=== PATIENT | male | born 2000 | race Caucasian/White ===

== ENCOUNTER 2024-01-24 17:09 | Emergency (ER) | payer OTHER, SELFPAY ==
[2024-01-24] VITALS (11 sets, daily range): BP systolic 128–139; BP diastolic 77–85; PULSE 70–85; RESP 18; TEMP 36.8; O2SAT 96–99; BMI 21.2
--- NOTE | 2024-01-24 17:19 | ED.GENADULT ---
HPI - General Adult General Chief complaint: Dizziness/Vertigo Stated complaint: dizziness/tingling hands and feet Time Seen by Provider: 01/24/24 17:18 History of Present Illness HPI narrative: 23-year-old male presenting to the ER today with his mother for evaluation of symptoms including dizziness, tingling, thirst, urinary problems. He is 23. He was with his parents. 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 He has no previous significant medical history. Mother notes that he has a long-term tendency to forward feeling somewhat anxious. He is not getting any therapy for anxiety or mental health. He does not use drugs or alcohol. He has had symptoms ongoing for the past couple of weeks. History is a bit vague in we can exactly determine precisely when her symptoms occurred. It was on Tuesday evening either 1, 2, or 3 weeks ago. He had been at work in the afternoon and then as he typically does in the evening he went to his grandparent's house after work. After that he was waiting for his mother to come pick him up and take him home. He recalls being very fatigued after work. He did not do anything particularly unusual that day. That evening he started having some tingling numbness that started 1st in his left hand and forearm and then spread to his left leg and left face. He had numbness but no definite weakness. Perhaps his left arm was slightly weaker than normal. That numbness lasted a couple of days and then got better by sometime mid day on Tuesday that week. Since then he has had intermittent episodes of numbness. Sometimes he gets tingling in his hands and sometimes he gets pins and needles in his feet. Subsequent absence of numbness have been bilateral, not unilateral. He has been more thirsty than normal. Last week he had some discomfort in his left eye and some blurry vision there. He and his mother went to the [facility] last week and had a evaluation but no labs. Since yesterday he has also been feeling a little bit dizzy. He is not really having spinning. He can not really describe the dizziness other than he feels dizzy. He is not having a fever. No cough. Knows a nasal congestion. No sore throat. No chest pain. No abdominal pain. He has had loose stools for the past couple of weeks but not really diarrhea. No bloody or black stools. He has been urinating frequently. He thinks he has probably had about 5 bottles of water since 2 days ago. He otherwise has been eating his normal light diet. He had a banana for breakfast. He had some orange juice and toast after work this afternoon. There has been some stress in his life. His aunt (mother sister) was briefly staying with his family. She was apparently very disrespectful and is having some legal troubles. There was no direct clot on flicked between the patient and his aunt, but it was stressful to have her staying there. Per [facility] notes from 01/16- Over the last 6 days he has noticed intermittent and episodic tingling on the left side of his body including his face, arm, and legs. He will have episodes one-several times daily, and cannot identify any trigger. Sometimes the tingling sensation will last minutes to hours. Sometimes he has symptoms in all 3 body parts at once but most of the time it is just in 1 or 2 of these body parts. This morning he woke up with some mild tingling on the left side but that resolved after couple of minutes and he has not had any symptoms since. He is completely asymptomatic in clinic today. Sometimes the left side of his face feels a little heavier and half my brain feels a little heavier. At the beginning he felt like his left arm was weak but that resolved and now today both of his legs feel a little weak. He had a funny smell in his nose yesterday. Yesterday he also had hazy vision in both eyes lasting most that of the day but that resolved before bed and he has normal vision today. He has never had symptoms like this before. Mom has not noticed any significant change in his demeanor or behavior. He denies any new foods, medications, supplements, or change in his routine. He denies any fever or URI symptoms. No significant headaches or dizziness Related Data Home Medications ?Medication ?Instructions ?Recorded ?Confirmed No Known Home Medications 01/24/24 01/24/24 Allergies Allergy/AdvReac Type Severity Reaction Status Date / Time No Known Drug Allergies Allergy Verified 01/24/24 17:18 Exam Narrative: Exam Narrative: Constitutional: Appears well-developed and well-nourished. Alert. Conversant. Non toxic. HENT: Head: Atraumatic. Nose: Nose normal. Mouth/Throat: Oral mucosa is clear and moist. no trismus. Pharynx normal. Tonsils symmetric. No tonsillar enlargement, erythema, or exudate. Eyes: Conjunctivae normal. EOM normal. No nystagmus. Wearing glasses. Pupils equal, round, and reactive to light. No scleral icterus. Neck: Normal range of motion. Neck supple. No tracheal deviation present. Cardiovascular: Normal rate, regular rhythm. No gallop. No friction rub. No murmur heard. Symmetric radial artery pulses Pulmonary/Chest: Effort normal. No stridor. No respiratory distress. No wheezes. No rales. No rhonchi . No tenderness. Abdominal: Soft. Bowel sounds normal. No distension. No mass. No tenderness. No rebound. No guarding. Musculoskeletal: RUE: Normal range of motion. No tenderness. No deformity LUE: Normal range of motion. No tenderness. No deformity RLE: Normal range of motion. No edema. No tenderness. No deformity LLE: Normal range of motion. No edema. No tenderness. No deformity Lymph: No cervical adenopathy. Neurological: Mental status normal. Attention normal. Alert and oriented x3. GCS 15. Memory normal. Speech fluent. Cognition normal. Cranial Nerves intact II-XII except I did not formally test gag or visual acuity. EOMI. Palate elevates symmetrically and tongue protrudes in the midline. Strength: 5/5 trapezius on the right and left 5/5 deltoid on the right and left 5/5 biceps on the right and left 5/5 triceps on the right and left 5/5 oil tank car cleaner on the right and left 5/5 thumb opposition on the right and left 5/5 finger abduction on the right and left 5/5 hip flexors (L3) on the right and left 5/5 quadriceps (L4) on the right and left 5/5 tibialis anterior on the right and left 5/5 EHL (L5) on the right and left 5/5 gastrocnemius (S1) on the right and left 5/5 hamstring on the right and left Sensation intact to light touch in both upper extremities (C4-T1) Sensation intact to light touch in Both lower extremities (L4-S1). Finger to nose and coordination normal. Gait normal. Skin: Skin is warm and dry. No rash noted. No pallor. Normal capillary refill. Psychiatric: Flat affect. He is a very brief historian. It takes a lot of effort to try to coax out bits of history. He just really does not provide a good history of present illness that is in chronological order. Mother is at his bedside. She is attentive and anxious about him. They seem to interact appropriately and supportively together. No drugs. No marijuana. No alcohol. His aunt, who was staying with his family, may have been smoking some marijuana in her room. He is not sure Const: Vital Signs, click to edit/add: Vital Signs - 24 hr 01/24/24 17:19 01/24/24 18:09 01/24/24 18:15 Temperature 98.2 F Pulse Rate 75 71 Pulse Rate [Pulse Oximeter] 85 Respiratory Rate 18 Blood Pressure Blood Pressure [Ri ght Upper Arm] 137/84 Pulse Oximetry 98 98 98 Oxygen Delivery Me thod Room Air 01/24/24 18:30 01/24/24 18:31 01/24/24 18:32 Temperature Pulse Rate 70 72 72 Pulse Rate [Pulse Oximeter] Respiratory Rate Blood Pressure 128/77 Blood Pressure [Ri ght Upper Arm] Pulse Oximetry 96 97 98 Oxygen Delivery Me thod 01/24/24 18:45 01/24/24 19:00 01/24/24 19:02 Temperature Pulse Rate 73 79 76 Pulse Rate [Pulse Oximeter] Respiratory Rate Blood Pressure 139/85 Blood Pressure [Ri ght Upper Arm] Pulse Oximetry 97 98 98 Oxygen Delivery Me thod Course Vital Signs Vital signs: Initial Vital Signs Temperature 98.2 F 01/24/24 17:19 Temperature Source Temporal Artery Scan 01/24/24 17:19 Pulse Rate 85 01/24/24 17:19 Pulse Rhythm Regular 01/24/24 17:19 Respiratory Rate 18 01/24/24 17:19 Blood Pressure 137/84 01/24/24 17:19 Blood Pressure Mean 101 01/24/24 17:19 Blood Pressure Position Supine 01/24/24 17:19 Pulse Oximetry 98 01/24/24 17:19 Oxygen Delivery Method Room Air 01/24/24 17:19 Vital Signs Temperature 98.2 F 01/24/24 17:19 Pulse Rate 85 01/24/24 17:19 Respiratory Rate 18 01/24/24 17:19 Blood Pressure 137/84 01/24/24 17:19 Pulse Oximetry 98 01/24/24 17:19 Oxygen Delivery Method Room Air 01/24/24 17:19 Temperature 98.2 F 01/24/24 17:19 Pulse Rate 76 01/24/24 19:02 Respiratory Rate 18 01/24/24 17:19 Blood Pressure 139/85 01/24/24 19:02 Pulse Oximetry 98 01/24/24 19:02 Oxygen Delivery Method Room Air 01/24/24 17:19 Medications Administered Medications: Discontinued Medications Generic Name Dose Route Start Last Admin Trade Name Sherley PRN Reason Stop Dose Admin Levetiracetam 750 mg 01/24/24 19:54 01/24/24 20:08 Levetiracetam 500 Mg Tablet PO 01/24/24 19:55 750 mg ONCE ONE Administration Medical Decision Making [facility] Narrative Medical decision making narrative: 23-year-old male presenting to the ER today with his mother with concern for several symptoms. It sounds like he has been having intermittent episodes of paresthesias predominantly affecting his left side of his body. These have been happening off and on for the past couple of weeks. Also for a few days he has had some mild dizziness. No falls or any severe gait instability. Also a little bit of thirst and drinking lot of water over the past few days. Differential is quite broad for the symptoms. Laboratory workup shows normal white count, normal hemoglobin. He is not anemic. Carboxyhemoglobin level is normal. Metabolic profile shows normal electrolytes. Potassium is on the borderline for low at 3.5, but not low enough to cause any symptoms. LFTs are normal. Magnesium level normal. Glucose normal. No evidence for hyperglycemia or new onset diabetes. Urinalysis negative for infection. Urine is positive for ketones which could reflect some dehydration. He denies any drug or alcohol intoxication. No nystagmus or ataxia here in the ER. Alcohol level negative. Also consider possible MOLD BUNCH TRIMMER causes of the symptoms. We did obtain noncontrast head CT scan. This does show a concerning finding of a 2.6 cm lesion within the patient's right lateral ventricle. It is associated with enlargement of the right lateral ventricle but no other hydrocephalus. No midline shift. No evidence for surrounding edema. This lesion is concerning and since it affects the right hemisphere, could correlate to left-sided paresthesias. Discussed with the on-call neurologist through [facility], Dr. Dominguez. She questions whether these intermittent paresthesias might be self-limiting partial seizures. However, she is not comfortable making recommendations about further workup or treatment. She request consultation with Neurosurgery. Discussion with Neurosurgery, Dr. Bloom. He recommends that we initiate Keppra 750 mg b.i.d. and agrees with the plan to get the patient transferred to [place] for neuro monitoring and MRI and further workup Discussed with hospitalist, Dr. Ziegler at [facility] who accepts the patient for admission. Unfortunately there will be up to an 8 hour bed delay before a bed can be assigned [place]. He will have to abort here in the ER [facility] until a bed at [place]. Once a bed is available he will be transferred by EMS for neuro monitoring and route. Discussed with the patient and his mother. They are in agreement and verbalized understanding. Right now we are awaiting bed assignment from [facility] so we can call dispatched to arrange transport. Were anticipating and up to 8 hour delay before he will get a bed. Discussed with my oncoming partner here in the ER. They will monitor the patient's condition until he is transferred. Lab Data Labs: Lab Results 01/24/24 01/24/24 Range/Units 18:00 18:15 WBC 5.98 (4.50-11.00) K/uL RBC 5.77 (4.30-5.90) m/uL Hgb 16.2 (13.5-17.5) gm/dL Hct 48.3 (37.0-53.0) % MCV 84 (80-100) fL MCH 28 (26-34) pg MCHC 34 (32-36) gm/dL RDW Coeff of Roberta 12.0 (11.5-15.5) % Plt Count 192 (140-440) K/uL Neut % (Auto) 67.4 (42.0-72.0) % Lymph % (Auto) 24.9 (20-44) % Carroll % (Auto) 6.7 (0.0-11.0) % Eos % (Auto) 0.7 (0.0-7.0) % Baso % (Auto) 0.3 (0.0-3.0) % Neut # (Auto) 4.03 (1.7-7.0) K/uL Lymph # (Auto) 1.49 (0.90-2.90) K/uL Carroll # (Auto) 0.40 (0.00-0.90) K/UL Eos # (Auto) 0.04 (0.00-0.50) K/uL Baso # (Auto) 0.02 (0.00-0.30) K/uL Abs Immat Gran (auto) 0.00 (0.00-0.30) K/uL Imm/Tot Granulo (auto) 0.0 % Carboxyhemoglobin 2.6 (0.0-5.0) % Sodium 136 (135-149) mmol/L Potassium 3.5 L (3.6-5.1) mmol/L Chloride 101 (96-114) mmol/L Carbon Dioxide 23 (20-32) mmol/L Anion Gap 12 (7-15) mEq/L BUN 12 (5-24) mg/dL Creatinine 0.9 (0.5-1.5) mg/dL Estimated Creat Clear 136.29 Estimated GFR 124 ml/min Glucose 89 (60-115) mg/dL Calcium 8.9 (8.4-10.6) mg/dL Magnesium 2.2 (1.5-2.6) mg/dL Total Bilirubin 1.4 (0.1-1.5) mg/dL AST 18 (12-35) U/L ALT 14 (4-50) U/L Alkaline Phosphatase 51 (40-150) U/L Total Protein 7.5 (6.0-8.3) g/dL Albumin 4.8 (3.3-5.0) g/dL TSH 0.772 (0.270-4.200) uIU/mL Urine Color Yellow (Yellow) Urine Appearance Clear (Clear) Urine pH 5.5 (5.0-8.5) Ur Specific [place] >= 1.030 (1.000-1.030) Urine Protein Trace A (Negative) Urine Glucose (UA) Negative (Negative) Urine Ketones 4+ A (Negative) Urine Blood Negative (Negative) Urine Nitrite Negative (Negative) Urine Bilirubin 1+ A (Negative) Urine Urobilinogen 0.2 (0.2-1.0) Ur Leukocyte Esterase Negative (Negative) Urine RBC 0-2 (0-2) Urine WBC 2-5 (0-5) Ur Squamous Epith Cells Few (None-Few) Urine Bacteria Few A (None) Urine Mucus Many A (None) Ethyl Alcohol < 0.01 L (0.01-0.03) % ECG Data Attestation: I personally reviewed and interpreted this ECG as follows: Interpretation: Normal sinus rhythm Rate: 77 WA: 160. Biphasic P-waves suggest possible left atrial enlargement QRS axis: Normal QRS axis. Large voltages due to thin body habitus. ST segment/T wave: Concave upward ST elevation in 2, AVF, V4, V5 consistent with a benign early repolarization QTc: 432 Discharge Plan Discharge Clinical Impression: Brain tumor, Partial seizure Patient Disposition: [facility] Dow Prescriptions: No Action No Known Home Medications Stand Alone Forms: [employer] Info Instructions
--- NOTE | 2024-01-24 17:54 | CRLHL7_ITS ---
For Patients: As a result of the Century Cures Act, medical imaging exams and procedure reports are released immediately into your electronic medical record. You may view this report before your referring provider. If you have questions, please contact your health care provider. Indication Paresthesias. Dizziness. TECHNIQUE: Noncontrast CT images of the brain. COMPARISON: None. FINDINGS: Partially calcified mass within the right lateral ventricle posterior body measuring 2.6 x 2.3 x 1.9 cm (AP/TR/CC). There is mild asymmetric enlargement of the right lateral ventricle. No hydrocephalus or midline shift. The louis-white differentiation is maintained. No acute intracranial hemorrhage or pathologic extra-axial fluid collection. Globes are symmetric. Calvarium is intact. Mild mucosal thickening of the visualized left maxillary sinus. The mastoid air cells are clear. IMPRESSION: Partially calcified 2.6 cm mass within the right lateral ventricle posterior body is indeterminate, though favored to represent neoplasm. Contrast-enhanced MRI brain is recommended for further evaluation. Please note that all CT scans at this facility use dose modulation, iterative reconstruction, and/or weight-based dosing when appropriate to reduce radiation dose to as low as reasonably achievable. Dictated by Catarino Yang MD @ 01/24/2024 6:17:00 PM (Electronically Signed)
[2024-01-24 18:12] LABS: Appearance Urine Clear (Clear); Bilirubin Urine 1+ (Negative); Blood Urine Negative (Negative); Color Urine Yellow (Yellow); Glucose Urine Negative (Negative); Ketones Urine 4+ (Negative); Leukocyte Esterase Urine Negative (Negative); Nitrite Urine Negative (Negative); Protein Urine Trace (Negative); Specific Gravity Urine >= 1.030 (1.000-1.030); Urobilinogen Urine 0.2 (0.2-1.0); pH Urine 5.5 (5.0-8.5)
[2024-01-24 18:19] LABS: Carboxyhemoglobin* 2.6 % (0.0-5.0)
[2024-01-24 18:21] LABS: Basophils Absolute Auto 0.02 K/uL (0.00-0.30); Basophils Percent Auto 0.3 % (0.0-3.0); Eosinophils Absolute Auto 0.04 K/uL (0.00-0.50); Eosinophils Percent Auto 0.7 % (0.0-7.0); Hematocrit 48.3 % (37.0-53.0); Hemoglobin* 16.2 gm/dL (13.5-17.5); Lymphocytes Absolute Auto 1.49 K/uL (0.90-2.90); Lymphocytes Percent Auto 24.9 % (20-44); Mean Corpuscular HGB Conc 34 gm/dL (32-36); Mean Corpuscular Hemoglobin 28 pg (26-34); Mean Corpuscular Volume 84 fL (80-100); Monocytes Percent Auto 6.7 % (0.0-11.0); Neutrophils Absolute Auto 4.03 K/uL (1.7-7.0); Neutrophils Percent Auto 67.4 % (42.0-72.0); Platelet Count* 192 K/uL (140-440); Red Blood Count 5.77 m/uL (4.30-5.90); White Blood Count* 5.98 K/uL (4.50-11.00)
[2024-01-24 18:23] LABS: Slide Review Reflex No
[2024-01-24 18:36] LABS: Albumin* 4.8 g/dL (3.3-5.0)
[2024-01-24 18:37] LABS: Bacteria Urine Few; Mucus Urine Many; RBC Urine 0-2 (0-2); Squamous Epithelial Cell Urine Few (None-Few)
[2024-01-24 18:37] LABS: Chloride* 101 mmol/L (96-114); Potassium* 3.5 mmol/L (3.6-5.1); Sodium* 136 mmol/L (135-149)
[2024-01-24 18:39] LABS: Anion Gap 12 mEq/L (7-15); Aspartate Amino Transferase* 18 U/L (12-35); Bilirubin Total* 1.4 mg/dL (0.1-1.5); Carbon Dioxide* 23 mmol/L (20-32); Creatinine* 0.9 mg/dL (0.5-1.5); Est. Creatinine Clearance* 136.29; Estimated Glomerular Filt Rate 124 ml/min; Total Protein* 7.5 g/dL (6.0-8.3)
[2024-01-24 18:40] LABS: Alanine Aminotransferase* 14 U/L (4-50); Alkaline Phosphatase* 51 U/L (40-150); Blood Urea Nitrogen* 12 mg/dL (5-24); Calcium* 8.9 mg/dL (8.4-10.6); Glucose* 89 mg/dL (60-115); Magnesium* 2.2 mg/dL (1.5-2.6)
[2024-01-24 18:49] LABS: Ethanol* < 0.01 % (0.01-0.03)
[2024-01-24 19:58] LABS: TSH With Reflex to FT4* 0.772 uIU/mL (0.270-4.200)
[2024-01-24] MEDS: levETIRAcetam 500 MG TABLET 750 MG PO (20:08)
[2024-01-25 01:10] VITALS: BP 128/72; PULSE 70; RESP 18; O2SAT 97
--- NOTE | 2024-01-25 02:15 | ED.NURSE ---
EMS arrived to transfer pt
== END 2024-01-25 02:17 | disposition short-term general hospital (02) ==
PROVIDERS: Emergency Provider Emergency Medicine
DX: D49.6 Neoplasm of unspecified behavior of brain (principal); G40.109 Localization-related (focal) (partial) symptomatic epilepsy and epileptic syndromes with simple partial seizures, not intractable, without status epilepticus
CPT/HCPCS: 36415; 70450; 80053; 81001; 82077; 82375; 83735; 84443; 85025; 87086; 93005; 99284; 99285; A9270

== ENCOUNTER 2024-01-25 02:12 | Outpatient (CLI) | payer MEDICAID, SELFPAY | END 2024-01-25 02:13 | disposition home or self-care (01) | LOC: AMB 02-07 01:05 | PROVIDERS: Visit Provider Family Medicine | DX: D49.6 Neoplasm of unspecified behavior of brain (principal) | CPT/HCPCS: A0425; A0427 ==

== ENCOUNTER 2024-09-21 18:31 | Emergency (ER) | payer BC, SELFPAY ==
[2024-09-21 18:40] VITALS: BP 104/65; RESP 16; TEMP 37.2; O2SAT 94
--- NOTE | 2024-09-21 19:27 | ED.GENADULT ---
HPI - General Adult General Date Seen: 09/21/24 Chief complaint: Syncope/Fainted Stated complaint: Fell hard at home did not hit head, dizzy Time Seen by Provider: 09/21/24 18:55 History of Present Illness HPI narrative: Patient is a 24-year-old young man here with parents for an evaluation of a near syncopal event a little bit ago. He has a notable past medical history of brain mass that was operated on at [facility] last fall. He is maintained on Keppra. He has had intermittent headaches and neck pain since before his surgery and as well as after. He did awaken at 5:30 a.m. this morning with some pain in his neck and mom gave him some ibuprofen. It does not sound as if this was entirely unusual for him. He went back to bed and woke up sometime later feeling improved. This evening at around 6:00 p.m. his dad said he had gotten up from the couch to go to the kitchen and get something to eat. He was walking back to the couch and he says he became lightheaded, felt faint. Dad says he fell to the ground pretty hard, he does remember this episode, he did not have complete loss of consciousness and did not hit his head. He does not have neck pain now. He does have a little bit of a headache behind his eyes which he also feels is not particularly unusual for him. He did not have any witnessed seizure activity. Parents acknowledged they are fairly gunshy since the events of last fall, and wanted to get him checked out. He has not had any vomiting or diarrhea, no fevers, no cough, no chest pain, no abdominal or back pain, no severe headache and no new neurologic symptoms. Mom does note that she was sick for couple of weeks with which she thinks was maybe COVID and then bronchitis, then his dad got sick, and they are wondering if he maybe has caught the same bug. Related Data Home Medications ?Medication ?Instructions ?Recorded ?Confirmed No Known Home Medications 01/24/24 01/24/24 Allergies Allergy/AdvReac Type Severity Reaction Status Date / Time No Known Drug Allergies Allergy Verified 01/24/24 17:18 Review of Systems Status of ROS: Reports: 10 or more systems reviewed and unremarkable except as noted in History and below PFSH [facility] Social History Smoking Status: Never smoker Do you use any of these nicotine containing products: None How often do you have a drink containing alcohol: never AUDIT-C Alcohol total score: 0 Non-prescribed substance use: denies use service: No Exam Narrative: Exam Narrative: Vital signs reviewed In general, alert, nontoxic young man. Head: Normocephalic, atraumatic. Eyes: Sclera clear. Pupils equal and reactive. Extraocular movements are full. ENT: Mucous membranes moist. Neck: Supple without adenopathy. Nontender to palpation. Heart: Mildly tachycardic, regular. No obvious murmur. Lungs: Clear. No increased work of breathing, crackles or wheezes. Abdomen: Soft, nontender to palpation. Extremities: Well perfused, pulses intact. No significant edema. Neurologic: Alert, conversant. Speech fluent, face symmetric. Moves all extremities equally. Gait stable. Skin: Warm, dry well perfused. Affect: Normal. Const: Vital Signs, click to edit/add: Vital Signs - 24 hr 09/21/24 18:40 Temperature 99 F Respiratory Rate 16 Blood Pressure [Le ft Upper Arm] 104/65 Pulse Oximetry 94 Oxygen Delivery Me thod Room Air Course Course ED Course: Following initial evaluation, we discussed how to proceed. Certainly given his neurologic history, it is understandable that they were concerned with this event. Diagnostic considerations would include such things as seizure, intracranial hemorrhage, intracranial infection etcetera, however it does not sound as if he is having significant neurologic symptoms including this headache and neck pain. In a process of shared decision making, at least initially we are holding off on imaging. We are going to start with some basic labs and fluids, check a COVID swab, and reassess once we have that information. An EKG by my review shows a sinus tachycardia, ventricular rate of 101. Moderate voltage criteria for LVH, but I suspect given his age and body habitus that this is normal. Labs are notable for a mildly low potassium of 3.3, white count is normal, hemoglobin is 15.1. Her electrolytes are normal, blood sugars 111. His COVID is positive. He had a L normal saline here, he is feeling fine aside from some generalized body aches at this point. I think it is reasonable to let him go home, we discussed COVID, management, what to look for. I do not see clear indication here for Paxlovid. Reviewed reasons to return such as high fevers, severe headache, uncontrolled vomiting, fainting, significant shortness of breath etcetera.. Otherwise, ibuprofen and/or Tylenol as needed. Primary care follow-up with Gradually improving in the next 7-10 days. Vital Signs Vital signs: Initial Vital Signs Temperature 99 F 09/21/24 18:40 Temperature Source Temporal Artery Scan 09/21/24 18:40 Pulse Rhythm Regular 09/21/24 18:40 Respiratory Rate 16 09/21/24 18:40 Blood Pressure 104/65 09/21/24 18:40 Blood Pressure Mean 78 09/21/24 18:40 Pulse Oximetry 94 09/21/24 18:40 Oxygen Delivery Method Room Air 09/21/24 18:40 Vital Signs Temperature 99 F 09/21/24 18:40 Respiratory Rate 16 09/21/24 18:40 Blood Pressure 104/65 09/21/24 18:40 Pulse Oximetry 94 09/21/24 18:40 Oxygen Delivery Method Room Air 09/21/24 18:40 Temperature 99 F 09/21/24 18:40 Respiratory Rate 16 09/21/24 18:40 Blood Pressure 104/65 09/21/24 18:40 Pulse Oximetry 94 09/21/24 18:40 Oxygen Delivery Method Room Air 09/21/24 18:40 Medications Administered Medications: Discontinued Medications Generic Name Dose Route Start Last Admin Trade Name Freq PRN Reason Stop Dose Admin Sodium Chloride 1,000 mls @ 1,000 mls/hr 09/21/24 19:15 09/21/24 19:33 0.9 % Sodium Chloride 1000 Ml IV 09/21/24 20:14 1,000 mls/hr .Q1H ANGEL Administration Medical Decision Making Lab Data Labs: Lab Results 09/21/24 09/21/24 Range/Units 19:10 19:30 WBC 4.95 (4.50-11.00) K/uL RBC 5.36 (4.30-5.90) m/uL Hgb 15.1 (13.5-17.5) gm/dL Hct 45.1 (37.0-53.0) % MCV 84 (80-100) fL MCH 28 (26-34) pg MCHC 34 (32-36) gm/dL RDW Coeff of Roberta 12.0 (11.5-15.5) % Plt Count 142 (140-440) K/uL Neut % (Auto) 74.1 H (42.0-72.0) % Lymph % (Auto) 9.1 L (20-44) % [place] % (Auto) 16.6 H (0.0-11.0) % Eos % (Auto) 0.0 (0.0-7.0) % Baso % (Auto) 0.2 (0.0-3.0) % Neut # (Auto) 3.70 (1.7-7.0) K/uL Lymph # (Auto) 0.50 L (0.90-2.90) K/uL [place] # (Auto) 0.80 (0.00-0.90) K/UL Eos # (Auto) 0.00 (0.00-0.50) K/uL Baso # (Auto) 0.01 (0.00-0.30) K/uL Abs Immat Gran (auto) 0.00 (0.00-0.30) K/uL Imm/Tot Granulo (auto) 0.0 % Sodium 138 (135-149) mmol/L Potassium 3.3 L (3.6-5.1) mmol/L Chloride 104 (96-114) mmol/L Carbon Dioxide 24 (20-32) mmol/L Anion Gap 10 (7-15) mEq/L BUN 13 (5-24) mg/dL Creatinine 1.1 (0.5-1.5) mg/dL Estimated GFR 97 ml/min Glucose 111 (60-115) mg/dL Calcium 9.1 (8.4-10.6) mg/dL Magnesium 1.9 (1.5-2.6) mg/dL SARS-CoV-2 (PCR) POSITIVE SARS-CoV-2 A (Negative) Influenza Type A (PCR) Negative PCR FLU A (Negative) Influenza Type B (PCR) Negative PCR FLU B (Negative) RSV (PCR) Negative PCR RSV (Negative) Discharge Plan Discharge Clinical Impression: COVID-19, Near syncope Patient Disposition: Home w/ Parent or Adult Condition: Stable Instructions: Near Syncope (ED), COVID-19 (Coronavirus Disease 2019) (ED) Additional Instructions: Make sure to keep up with hydration. For severe headache, high fevers, vomiting, fainting, or other worsening return at any time. Otherwise, anticipate improvement over 7-10 days. See primary care as needed if not improving. Prescriptions: No Action No Known Home Medications Follow Up/Referrals: Provider,Not a Local [Primary Care Provider, Family Practice] Stand Alone Forms: [employer] Info Instructions
[2024-09-21] MEDS: 0.9 % SODIUM CHLORIDE 1000 ml 1,000 ML IV (19:33)
[2024-09-21 19:37] LABS: Basophils Absolute Auto 0.01 K/uL (0.00-0.30); Basophils Percent Auto 0.2 % (0.0-3.0); Hematocrit 45.1 % (37.0-53.0); Hemoglobin* 15.1 gm/dL (13.5-17.5); Lymphocytes Percent Auto 9.1 % (20-44); Mean Corpuscular HGB Conc 34 gm/dL (32-36); Mean Corpuscular Hemoglobin 28 pg (26-34); Mean Corpuscular Volume 84 fL (80-100); Monocytes Percent Auto 16.6 % (0.0-11.0); Neutrophils Percent Auto 74.1 % (42.0-72.0); Platelet Count* 142 K/uL (140-440); Red Blood Count 5.36 m/uL (4.30-5.90); White Blood Count* 4.95 K/uL (4.50-11.00)
[2024-09-21 19:41] LABS: Slide Review Reflex No
[2024-09-21 19:47] LABS: Chloride* 104 mmol/L (96-114)
[2024-09-21 19:48] LABS: Potassium* 3.3 mmol/L (3.6-5.1); Sodium* 138 mmol/L (135-149)
[2024-09-21 19:52] LABS: Anion Gap 10 mEq/L (7-15); Blood Urea Nitrogen* 13 mg/dL (5-24); Calcium* 9.1 mg/dL (8.4-10.6); Carbon Dioxide* 24 mmol/L (20-32); Creatinine* 1.1 mg/dL (0.5-1.5); Estimated Glomerular Filt Rate 97 ml/min; Glucose* 111 mg/dL (60-115); Magnesium* 1.9 mg/dL (1.5-2.6)
[2024-09-21 20:31] VITALS: PULSE 89; O2SAT 96
[2024-09-21 20:32] VITALS: BP 125/72; PULSE 90; O2SAT 97
[2024-09-21 20:37] LABS: PCR FLU A Negative PCR FLU A (Negative); PCR FLU B Negative PCR FLU B (Negative); PCR RSV Negative PCR RSV (Negative); SARS PCR* POSITIVE SARS-CoV-2 (Negative)
[2024-09-21 20:45] VITALS: PULSE 99; O2SAT 98
== END 2024-09-21 21:02 | disposition home or self-care (01) ==
PROVIDERS: Emergency Provider Emergency Medicine
DX: U07.1 COVID-19 (principal); R55 Syncope and collapse; R51.9 Headache, unspecified; M54.2 Cervicalgia; R00.0 Tachycardia, unspecified
CPT/HCPCS: 36415; 80048; 83735; 85025; 87631; 93005; 99284; J7030